=== PATIENT | male | born 1965 | race Caucasian/White ===

== ENCOUNTER 2016-12-25 11:51 | Inpatient (IN) | payer OTHER ==
[~2016-12-25] VITALS: Ht 172.7 cm; Wt 91.2 kg
--- NOTE | 2016-12-25 12:17 | EMERGENCY ROOM VISIT NOTE ---
History Report prepared by Alejandra: Marcela Mullen Under the Supervision of: Dr. Jerry Wilhelm D.O. First contact with patient: 12:04 Chief Complaint: STROKE SYMPTOMS Stated Complaint: NUMBNESS TO RT SIDE OF FACE/ARM Nursing Triage Summary: Triage note: pt ambulatory to triage. pt reports he woke up at approx 0600 "and i nearly fell out of bed, i just don' t feel right i feel like i am drunk or something" pt reports and the right side of my face in numb which started at 0800. pt reports at 0300 "i went to the bathroom fine but i felt weird then too." pt reports in triage "i am scared and is tearful. pt denies any pain. History of Present Illness The patient is a 51 year old male who presents to the Emergency Room with complaints of worsening right sided facial numbness beginning last night. The patient states that last night he had a [address] to [place] [facility]. 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 Once we got home he notes facial numbness began as well as tingling to right arm. Over night these symptoms worsened. He notes that he feels he does not have complete control of his right arm and is having trouble holding items. Patient states he "feels drunk", but denies recent alcohol use. He is experiencing mild nausea. The patient denies chest pain, shortness of breath, headache, vomiting or abdominal pain. He notes his speech is at baseline. Source of History: patient Onset: last night Position: other (face) Quality: numbness Timing: worsening Associated Symptoms: + nausea, No SOB, No abdominal pain, No chest pain Note: Patient is experiencing right arm tingling. Review of Systems See HPI for pertinent positives & negatives. A total of 10 systems reviewed and were otherwise negative. Past Medical & Surgical Medical Problems: (1) TIA (transient ischemic attack) Family History Patient reports no known family medical history. Social History Smoking Status: Current Every Day Smoker Alcohol Use: occasionally Drug Use: marijuana Occupation Status: employed Current/Historical Medications No Active Prescriptions or Reported Meds Allergies Coded Allergies: No Known Allergies (Unverified , 12/25/16) Physical Exam Vital Signs Date Time Temp Pulse Resp B/P Pulse Ox O2 Delivery O2 Flow Rate FiO2 12/25/16 14:30 66 20 143/102 97 Room Air 12/25/16 13:30 66 18 163/85 98 Room Air 12/25/16 12:30 70 20 151/80 97 Room Air 12/25/16 12:15 71 20 170/90 98 Room Air 12/25/16 12:09 77 12/25/16 12:08 96 Room Air 12/25/16 11:56 36.8 85 18 211/125 96 Room Air Physical Exam GENERAL: Patient is awake, alert, and in no acute distress. Patient is resting comfortably and showing no signs of anxiety EYES: The conjunctivae are clear. The pupils are round and reactive. EARS, NOSE, MOUTH AND THROAT: The nose is without any evidence of any deformity. Mucous membranes are moist tongue is midline NECK: The neck is nontender and supple. RESPIRATORY: Normal respiratory effort is noted there is no evidence of wheezing rhonchi or rales CARDIOVASCULAR: Regular rate and rhythm noted there no murmurs rubs or gallops normal S1 normal S2 GASTROINTESTINAL: The abdomen is soft. Bowel sounds are present in all quadrants. Abdomen is nontender MUSCULOSKELETAL/EXTREMITIES: There is no evidence of gross deformity full range of motion is noted in the hips and shoulders SKIN: There is no obvious evidence of any rash. There are no petechiae, pallor or cyanosis noted. NEUROLOGIC: Patient is awake alert and oriented x3 strength is symmetric patellar reflexes are 2+ bilaterally, no drift appreciated. Medical Decision & Procedures ER Provider Diagnostic Interpretation: Radiology results as stated below per my review and radiologist interpretation: CHEST ONE VIEW PORTABLE CLINICAL HISTORY: Stroke dyspnea COMPARISON STUDY: No previous studies for comparison. FINDINGS: The bones soft tissues and hemidiaphragms are normal. The cardiomediastinal silhouette is normal. The lungs are clear. The pulmonary vasculature is normal. IMPRESSION: Negative chest. Electronically signed by: Shai Garcia M.D. 12/25/2016 12:38 PM Dictated Date/Time: 12/25/2016 12:[address]AST CT DOSE: 638.56 mGycm HISTORY: Stroke symptoms. TECHNIQUE: Multiaxial CT images of the head were performed without the use of intravenous contrast. Automated exposure control was utilized for this study. Comparison: None. Findings: The paranasal sinuses and mastoid air cells are clear. The calvarium and skull base are intact. The ventricles and sulci are within normal limits. There is no mass, hematoma, midline shift, or acute infarct. Impression: No acute intracranial abnormality. Electronically signed by: Ramana Mendez M.D. 12/25/2016 12:31 PM Dictated Date/Time: 12/25/2016 12:25 PM Laboratory Results 12/25/16 12:06 Red Blood Count 5.04, Mean Corpuscular Volume 89.5, Mean Corpuscular Hemoglobin 31.9, Mean Corpuscular Hemoglobin Concent 35.7, Mean Platelet Volume 11.5, Neutrophils (%) (Auto) 54.1, Lymphocytes (%) (Auto) 35.5, Monocytes (%) (Auto) 7.3, Eosinophils (%) (Auto) 2.7, Basophils (%) (Auto) 0.2, Neutrophils # (Auto) 4.99, Lymphocytes # (Auto) 3.27, Monocytes # (Auto) 0.67, Eosinophils # (Auto) 0.25, Basophils # (Auto) 0.02 12/25/16 12:06 Test 12/25/16 12:06 12/25/16 12:09 12/25/16 13:00 White Blood Count 9.22 K/uL (4.8-10.8) Red Blood Count 5.04 M/uL (4.7-6.1) Hemoglobin 16.1 g/dL (14.0-18.0) Hematocrit 45.1 % (42-52) Mean Corpuscular Volume 89.5 fL (80-100) Mean Corpuscular Hemoglobin 31.9 pg (25-34) Mean Corpuscular Hemoglobin Concent 35.7 g/dl (32-36) Platelet Count 313 K/uL (130-400) Mean Platelet Volume 11.5 fL (7.4-10.4) Neutrophils (%) (Auto) 54.1 % Lymphocytes (%) (Auto) 35.5 % Monocytes (%) (Auto) 7.3 % Eosinophils (%) (Auto) 2.7 % Basophils (%) (Auto) 0.2 % Neutrophils # (Auto) 4.99 K/uL (1.4-6.5) Lymphocytes # (Auto) 3.27 K/uL (1.2-3.4) Monocytes # (Auto) 0.67 K/uL (0.11-0.59) Eosinophils # (Auto) 0.25 K/uL (0-0.5) Basophils # (Auto) 0.02 K/uL (0-0.2) RDW Standard Deviation 45.5 fL (36.4-46.3) RDW Coefficient of Variation 14.0 % (11.5-14.5) Immature Granulocyte % (Auto) 0.2 % Immature Granulocyte # (Auto) 0.02 K/uL (0.00-0.02) Prothrombin Time 11.0 SECONDS (9.0-12.0) Prothromb Time International Ratio 1.0 (0.9-1.1) Activated Partial Thromboplast Time 32.2 SECONDS (21.0-31.0) Partial Thromboplastin Ratio 1.2 Anion Gap 9.0 mmol/L (3-11) Est Creatinine Clear Calc Drug Dose 85.1 ml/min Estimated GFR () 88.4 Estimated GFR (Non- 76.2 BUN/Creatinine Ratio 10.7 (10-20) Calcium Level 9.2 mg/dl (8.5-10.1) Total Creatine Kinase 56 U/L (39-308) Creatine Kinase MB 0.9 ng/ml (0.5-3.6) Creatine Kinase MB Ratio 1.6 (0-3.0) Troponin I < 0.015 ng/ml (0-0.045) Bedside Glucose 135 mg/dl (70-99) Urine Opiates Screen NEG (NEG) Urine Methadone, Qualitative NEG (NEG) Urine Barbiturates NEG (NEG) Urine Phencyclidine (PCP) Level NEG (NEG) Ur Amphetamine/Methamphetamine NEG (NEG) MDMA (Ecstasy) Screen NEG (NEG) Urine Benzodiazepines Screen NEG (NEG) Urine Cocaine Metabolite NEG (NEG) Urine Marijuana (THC) POS (NEG) Laboratory results per my review. Medications Administered Medications (Trade) Dose Ordered Sig/Preston Route Start Time Stop Time Status Last Admin Dose Admin Sodium Chloride (Nss 1000ml) 1,000 ml @ 50 mls/hr Q20H IV 12/25/16 12:09 01/24/17 12:08 12/25/16 17:49 50 MLS/HR Acetaminophen (Tylenol Tab) 650 mg Q4H PRN PO 12/25/16 14:30 01/24/17 14:29 12/25/16 17:04 650 MG ECG Indication: other (facial numbness) Rate (beats per minute): 82 Rhythm: normal sinus Findings: no acute ischemic change, no ectopy Comparison ECG Date: no prior available ED Course 1205: The patient was evaluated in room B1. A complete history and physical examination were performed. 1209: Sodium Chloride 1,000 ml @ 50 mls/hr IV. 1212: Patient will not receive TPA due to long duration of symptoms. 1354: I discussed the results with the patient. 1357: I discussed the patient's case with Dr. Debbie COTTON. The patient will be evaluated for further management. 1400: Upon reevaluation, the patient is hemodynamically stable. I discussed results and treatment plan with the patient. He verbalizes agreement and understanding. I spoke with Dr. Lewis of the [facility]. The patient will be evaluated for further management and care. Medical Decision Differential diagnosis: Etiologies such as metabolic, infection, hypo/hyperglycemia, electrolyte abnormalities, cardiac sources, intracerebral event, toxicologic, neurologic, as well as others were entertained. Nursing notes reviewed. The patient is a 51-year-old male who has a history of untreated hypertension who presented to the emergency department for an evaluation of right sided neurologic symptoms. The patient did not have any acute abdomen abnormalities noted on CAT scan. I do feel that his condition could be consistent with a TIA. I discussed the patient's laboratory and radiographic studies with him. I also discussed his case with the on-call [facility] hospitalist group. They have agreed to evaluate the patient in emergency apartment for further management and disposition. Consults Time Called: [phone] Consulting Physician: Dr. Debbie COTTON Returned Call: [phone] I discussed the patient's case with Dr. Debbie COTTON. The patient will be evaluated for further management. Impression Primary Impression: TIA (transient ischemic attack) Additional Impression: Right sided weakness Scribe Attestation The scribe's documentation has been prepared under my direction and personally reviewed by me in its entirety. I confirm that the note above accurately reflects all work, treatment, procedures, and medical decision making performed by me. Departure Information Dispostion Being Evaluated By Hospitalist Prescriptions No Active Prescriptions or Reported Meds Referrals No Doctor, Assigned (PCP) Problem Qualifiers
[2016-12-25] MEDS: SODIUM CHLORIDE 0.9% 1000ML 1,000 ML IV SCH ×2 (12:27→17:49)
[2016-12-25 12:31] LABS: BASO % 0.2 %; BASO ABS # 0.02 K/uL (0-0.2); COMPLETE YES; EOS % 2.7 %; HEMATOCRIT 45.1 % (42-52); IG% 0.2 %; LYMPH % 35.5 %; LYMPH ABS # 3.27 K/uL (1.2-3.4); MEAN CELL VOLUME 89.5 fL (80-100); MEAN CORPUSCULAR HEMOGLOBIN 31.9 pg (25-34); MEAN CORPUSCULAR HGB CONC 35.7 g/dl (32-36); MEAN PLATELET VOLUME 11.5 fL (7.4-10.4); MONO % 7.3 %; NEUT % 54.1 %; PLATELET COUNT 313 K/uL (130-400); RED BLOOD COUNT 5.04 M/uL (4.7-6.1); WHITE BLOOD COUNT 9.22 K/uL (4.8-10.8)
--- NOTE | 2016-12-25 12:32 | DIAGNOSTIC IMAGING REPORT ---
HEAD CT NONCONTRAST CT DOSE: 638.56 mGycm HISTORY: Stroke symptoms. TECHNIQUE: Multiaxial CT images of the head were performed without the use of intravenous contrast. Automated exposure control was utilized for this study. Comparison: None. Findings: The paranasal sinuses and mastoid air cells are clear. The calvarium and skull base are intact. The ventricles and sulci are within normal limits. There is no mass, hematoma, midline shift, or acute infarct. Impression: No acute intracranial abnormality. Electronically signed by: Ramana Mendez M.D. 12/25/2016 12:31 PM Dictated Date/Time: 12/25/2016 12:25 PM
--- NOTE | 2016-12-25 12:39 | DIAGNOSTIC IMAGING REPORT ---
CHEST ONE VIEW PORTABLE CLINICAL HISTORY: Stroke dyspnea COMPARISON STUDY: No previous studies for comparison. FINDINGS: The bones soft tissues and hemidiaphragms are normal. The cardiomediastinal silhouette is normal. The lungs are clear. The pulmonary vasculature is normal. IMPRESSION: Negative chest. Electronically signed by: Shai Garcia M.D. 12/25/2016 12:38 PM Dictated Date/Time: 12/25/2016 12:38 PM
[2016-12-25 12:41] LABS: PARTIAL THROMBOPLASTIN RATIO 1.2
[2016-12-25 12:49] LABS: BLOOD UREA NITROGEN 12 mg/dl (7-18); BUN/CREATININE RATIO 10.7 (10-20); CALCIUM 9.2 mg/dl (8.5-10.1); CARBON DIOXIDE 23 mmol/L (21-32); CHLORIDE 101 mmol/L (98-107); GLUCOSE 136 mg/dl (70-99); POTASSIUM 3.8 mmol/L (3.5-5.1); SODIUM 133 mmol/L (136-145)
[2016-12-25 12:53] LABS: CKMB/CK RATIO 1.6 (0-3.0)
[2016-12-25 13:28] LABS: BENZODIAZEPINE, URINE NEG (NEG); COCAINE,URINE NEG (NEG); PHENCYCLIDINE, URINE NEG (NEG)
[2016-12-25] MEDS ORDERED: PHARMACIST DISCHARGE MED REC CONSULT PRN (14:30)
[2016-12-25] MEDS ORDERED: ONDANSETRON INJ 2 MG/ML 2 ML VIAL IV PRN (14:30)
[2016-12-25] MEDS ORDERED: ACETAMINOPHEN 325 MG TAB PO PRN (14:30)
[2016-12-25] MEDS ORDERED: ALUMINUM/MAGNESIUM/SIMETH (MAALOX MAX) 30 ML UDC PO PRN (14:30)
--- NOTE | 2016-12-25 14:58 | History and Physical ---
History & Physical Date & Time of Service: Dec 25, 2016 at 14:34 Chief Complaint: Numbness To Rt Side Of Face/Arm Primary Care Physician: No Doctor, Assigned History of Present Illness Source: patient This patient is a pleasant 51-year-old male that presents the emergency department complaining of right facial numbness, right arm weakness and dizziness that started last night. The patient initially noticed that the right side of his face felt numb last night around 8:00. When he woke up this morning at 6 AM, he reports feeling dizzy-almost intoxicated. He tried to grab his cell phone on the night stand and felt like his right arm was not working right. The symptoms have persisted since. He got out of bed, he had difficulty walking and continued to feel intoxicated. The patient denies any recent alcohol use. He denies any confusion or slurred speech. No difficulty swallowing. He is not from the area. He is here for work. The patient denies ever having similar symptoms. He does have a history of a cardiac stent, which was placed at the age of 33. He does not take any medications on a regular basis. He admits that he has not been to the doctor for quite some time. The patient also notes that he intermittently has visual changes when he overexerts himself with physical activity. He describes it as a "lightning bolts" in his right visual field. The symptoms seem to dissipate when he rests. He denies any chest pain or dyspnea on exertion. He denies any heart palpitations. He is a smoker-one pack per day. Past Medical/Surgical History cardiac stent x 1 at the age of 33 Family History father-carotid disease s/p endarterectomy still living in his 80s mother-still living. Reportedly healthy sister in her 50s of asthma Social History Smoking Status: Current Every Day Smoker (1 ppd ) Drug Use: marijuana Marital Status: in relationship Housing status: lives with significant other Occupational Status: employed Allergies Coded Allergies: No Known Allergies (Unverified , 12/25/16) Home Medications No Active Prescriptions or Reported Meds Review of Systems 10 system review performed and negative unless noted in HPI or below Physical Exam Vital Signs Date Time Temp Pulse Resp B/P Pulse Ox O2 Delivery O2 Flow Rate FiO2 12/25/16 12:30 70 20 151/80 97 Room Air 12/25/16 12:15 71 20 170/90 98 Room Air 12/25/16 12:09 77 12/25/16 12:08 96 Room Air 12/25/16 11:56 36.8 85 18 211/125 96 Room Air General Appearance: no apparent distress Head: normocephalic Eyes: EOMI ENT: + pertinent finding (oral mucosa dry) Neck: no JVD Respiratory/Chest: + pertinent finding (coarse breath sounds bilaterally. No rhonchi or wheezing. No crackles. No tachypnea.) Cardiovascular: regular rate, rhythm Abdomen/GI: normal bowel sounds, non tender, soft Extremities/Musculoskelatal: no calf tenderness, no pedal edema Neurologic/Psych: oriented x 3, + pertinent finding (questionable slight weakness noted with biceps strength on the right. Sensation decreased on the right side of the face.) Skin: warm/dry Diagnostics Laboratory Results Results Past 24 Hours Test 12/25/16 12:06 12/25/16 12:09 12/25/16 13:00 Range/Units White Blood Count 9.22 4.8-10.8 K/uL Red Blood Count 5.04 4.7-6.1 M/uL Hemoglobin 16.1 14.0-18.0 g/dL Hematocrit 45.1 42-52 % Mean Corpuscular Volume 89.5 80-100 fL Mean Corpuscular Hemoglobin 31.9 25-34 pg Mean Corpuscular Hemoglobin Concent 35.7 32-36 g/dl Platelet Count 313 130-400 K/uL Mean Platelet Volume 11.5 7.4-10.4 fL Neutrophils (%) (Auto) 54.1 % Lymphocytes (%) (Auto) 35.5 % Monocytes (%) (Auto) 7.3 % Eosinophils (%) (Auto) 2.7 % Basophils (%) (Auto) 0.2 % Neutrophils # (Auto) 4.99 1.4-6.5 K/uL Lymphocytes # (Auto) 3.27 1.2-3.4 K/uL Monocytes # (Auto) 0.67 0.11-0.59 K/uL Eosinophils # (Auto) 0.25 0-0.5 K/uL Basophils # (Auto) 0.02 0-0.2 K/uL RDW Standard Deviation 45.5 36.4-46.3 fL RDW Coefficient of Variation 14.0 11.5-14.5 % Immature Granulocyte % (Auto) 0.2 % Immature Granulocyte # (Auto) 0.02 0.00-0.02 K/uL Prothrombin Time 11.0 9.0-12.0 SECONDS Prothromb Time International Ratio 1.0 0.9-1.1 Activated Partial Thromboplast Time 32.2 21.0-31.0 SECONDS Partial Thromboplastin Ratio 1.2 Sodium Level 133 136-145 mmol/L Potassium Level 3.8 3.5-5.1 mmol/L Chloride Level 101 98-107 mmol/L Carbon Dioxide Level 23 21-32 mmol/L Anion Gap 9.0 3-11 mmol/L Blood Urea Nitrogen 12 7-18 mg/dl Creatinine 1.10 0.60-1.40 mg/dl Est Creatinine Clear Calc Drug Dose 85.1 ml/min Estimated GFR () 88.4 Estimated GFR (Non- 76.2 BUN/Creatinine Ratio 10.7 10-20 Random Glucose 136 70-99 mg/dl Calcium Level 9.2 8.5-10.1 mg/dl Total Creatine Kinase 56 39-308 U/L Creatine Kinase MB 0.9 0.5-3.6 ng/ml Creatine Kinase MB Ratio 1.6 0-3.0 Troponin I < 0.015 0-0.045 ng/ml Bedside Glucose 135 70-99 mg/dl Urine Opiates Screen NEG NEG Urine Methadone, Qualitative NEG NEG Urine Barbiturates NEG NEG Urine Phencyclidine (PCP) Level NEG NEG Ur Amphetamine/Methamphetamine NEG NEG MDMA (Ecstasy) Screen NEG NEG Urine Benzodiazepines Screen NEG NEG Urine Cocaine Metabolite NEG NEG Urine Marijuana (THC) POS NEG Diagnostic Radiology Patient Name: VERO MUJICA Unit Number: [id number] Dictated: 12/25/161224 Transcribed: 12/25/161224 [facility] Printed Date/Time: [~ rep prt dt]/[~ rep prt tm] [~ rep ct labl] - [~ rep ct ivnm] [facility] Radiology Department [place], [place] [id number] Dictated: 12/25/161224 Transcribed: 12/25/161224 [place] Printed Date/Time: [~ rep prt dt]/[~ rep prt tm] [~ rep ct labl] - [~ rep ct ivnm] Patient: VERO MUJICA Address1: [address] [facility] [address] [facility] Rec: [id number] Address2: Acct ID: [id number] [facility] Zip: [place] [address] Date: 1965 Sex: M Room/Bed: Ref Phy: No Doctor, Assigned SC: SEYMOUR Att Phy: Report #: [id number] Elo Phy: No Doctor, Assigned Test: HWO Admit Phy: Analyst Programmer: SANTOS Interpreting Phy: Ramana Mendez MD Diagnosis: NUMBNESS TO RT SIDE OF FACE/ARM Ordering Phy: Jerry Wilhelm D.O. Service Date: 12/25/16 Admit Date: 12/25/16 MNE: [id number] CONF: DICTATED BY: Ramana Mendez M.D.]] CC: Jerry Wilhelm, DO No Doctor, Assigned Endcc: [~ rep ct add3]] HEAD CT NONCONTRAST CT DOSE: 638.56 mGycm HISTORY: Stroke symptoms. TECHNIQUE: Multiaxial CT images of the head were performed without the use of intravenous contrast. Automated exposure control was utilized for this study. Comparison: None. Findings: The paranasal sinuses and mastoid air cells are clear. The calvarium and skull base are intact. The ventricles and sulci are within normal limits. There is no mass, hematoma, midline shift, or acute infarct. Impression: No acute intracranial abnormality. Electronically signed by: Ramana Mendez M.D. 12/25/2016 12:31 PM Dictated Date/Time: 12/25/2016 12:25 PM The status of this report is Signed. Draft = Not yet reviewed or approved by Radiologist. Signed = Reviewed and approved by Radiologist. <AttendingPhy></AttendingPhy> <FamilyPhy>No Doctor, Assigned</FamilyPhy> < PrimaryPhy>No Doctor, Assigned</PrimaryPhy> <UnitNumber>[id number]</UnitNumber> <VisitNumber>[id number]</VisitNumber> <PatientName>VERO MUJICA</ PatientName> <DateOfBirth>1965</DateOfBirth> <Location>C.EDB</Location> < ServiceDate>12/25/16</ServiceDate> <MNE>ESINDI</MNE> <OrderingPhy>Jerry Wilhelm D.O.</OrderingPhy> <OrderingPhyMNE>f rep ord dr villasenor</OrderingPhyMNE> <DictatingPhyMNE>f rep dict dr villasenor</DictatingPhyMNE> <CCListMNE>f rep ct mne</ CCListMNE> <AdmittingPhyMNE>f pt admit dr villasenor</AdmittingPhyMNE> <AttendingPhyMNE >f pt attend dr villasenor</AttendingPhyMNE> <ConsultingPhyMNE>f pt consult dr villasenor</ConsultingPhyMNE> <FamilyPhyMNE>f pt fam dr villasenor</FamilyPhyMNE> <OtherPhyMNE>f pt other dr villasenor</OtherPhyMNE> < PrimaryPhyMNE>f pt prim care dr villasenor</PrimaryPhyMNE> <ReferringPhyMNE>f pt referring dr villasenor</ReferringPhyMNE> Patient: VERO MUJICA Address1: [facility] [facility] Med Rec: [id number] Address2: Acct ID: [id number] [facility] Zip: [place] [address] Date: 1965 Sex: M Room/Bed: Ref Phy: No Doctor, Assigned SC: SEYMOUR Att Phy: Report #: [id number] Elo Phy: No Doctor, Assigned Test: CXR1P Admit Phy: Analyst Programmer: CHRISTIANA Interpreting Phy: Shai Garcia M.D. Diagnosis: NUMBNESS TO RT SIDE OF FACE/ ARM Ordering Phy: Jerry Wilhelm D.O. Service Date: 12/25/16 Admit Date: 12/25/16 MNE: [id number] CONF: DICTATED BY: Shai Garcia M.D.]] CC: Jerry Wilhelm, No Doctor, Assigned Endcc: [~ rep ct add3]] CHEST ONE VIEW PORTABLE CLINICAL HISTORY: Stroke dyspnea COMPARISON STUDY: No previous studies for comparison. FINDINGS: The bones soft tissues and hemidiaphragms are normal. The cardiomediastinal silhouette is normal. The lungs are clear. The pulmonary vasculature is normal. IMPRESSION: Negative chest. Electronically signed by: Shai Garcia M.D. 12/25/2016 12:38 PM Dictated Date/Time: 12/25/2016 12:38 PM The status of this report is Signed. Draft = Not yet reviewed or approved by Radiologist. Signed = Reviewed and approved by Radiologist. <AttendingPhy></AttendingPhy> <FamilyPhy>No Doctor, Assigned</FamilyPhy> < PrimaryPhy>No Doctor, Assigned</PrimaryPhy> <UnitNumber>[id number]</UnitNumber> <VisitNumber>[id number]</VisitNumber> <PatientName>VERO MUJICA</ PatientName> <DateOfBirth>1965</DateOfBirth> <Location>C.EDB</Location> < ServiceDate>12/25/16</ServiceDate> <MNE>ESINDI</MNE> <OrderingPhy>Jerry Wilhelm D.O.</OrderingPhy> <OrderingPhyMNE>f rep ord dr villasenor</OrderingPhyMNE> <DictatingPhyMNE>f rep dict dr villasenor</DictatingPhyMNE> <CCListMNE>f rep ct [place]</ CCListMNE> <AdmittingPhyMNE>f pt admit dr villasenor</AdmittingPhyMNE> <AttendingPhyMNE >f pt attend dr villasenor</AttendingPhyMNE> <ConsultingPhyMNE>f pt consult dr villasenor</ConsultingPhyMNE> <FamilyPhyMNE>f pt fam dr villasenor</FamilyPhyMNE> <OtherPhyMNE>f pt other dr villasenor</OtherPhyMNE> < PrimaryPhyMNE>f pt prim care dr villasenor</PrimaryPhyMNE> <ReferringPhyMNE>f pt referring dr villasenor</ReferringPhyMNE> EKG Normal sinus rhythm 82 bpm No ischemic changes noted No previous available for comparison Impression Assessment and Plan 51 y/o male right facial numbness and questionable right arm weakness with feelings of uncoordination-? TIA vs CVA. Multiple risk factors -Admit to telemetry -Neuro checks every 2 hours -MRI brain combo -carotid US -Check echo -Trend cardiac enzymes -Allow for permissive hypertension for now -Lipid profile -HgbA1C -Begin atorvastatin 40 mg daily -Continue ASA 81 mg -Blood pressure recommendations for the first month post hospital discharge 150/ 90-130/80, and after that blood pressure recommendations 130/80-110/70 Total cholesterol goal 100- 200 and LDL goal less than 100 Hemoglobin A1c goal less than 7 Encourage cardiovascular exercise at least 3 times a week for 30 minutes. CAD s/p stent-unsure why he is not taking any meds-poor compliance/f/u? -ASA and statin as noted above -? start beta rachel DVT prophylaxis -Lovenox 40 mg subQ daily -TEDS, SCDs CODE STATUS -LEVEL I FULL CODE i personally examined pt and verified all points w A [facility] PAC feeling better by the time i see him. R face and arm sensation returning and strength good. "drunk" feeling fading. anxious about what's going on. relates that he used to smoke 2ppd now down to alternating between cigarettes and ecigs. vitals noted, pleasant nad. L pupil > R. no facial asymmetry, strength appears normal. breathing unlabored. exam otherwise as above MRI noted TIA - appearing most likely due to intracranial small vessel disease - high risk for atherosclerotic disease: male, age, HTN, he believes hyperlipid, pre- existing (+) vascular disease, heavy tobacco use hx w ongoing use. -check lipids, check A1c, follow BP (but need to treat some given range of elevations currently - with HR in 60's will add lisinopril instead of beta rachel) -check carotids to rule out atheroembolic source -follow for afib, check echo to eval for potential for cardioembolic ---start asa 81mg daily, lipitor 40mg daily (may need to raise to 80 depending on lipids - he relates believing his cholesterol will be "around 400") unsteadiness -?related to above w numbness making perception of proprioception off, vs gee lesion noted affecting equilibrium. -treat as above -PT/OT otherwise as above Level of Care Telemetry Resuscitation Status FULL RESUSCITATION VTE Prophylaxis VTE Risk Assessment Done? Y/N: Yes Risk Level: Low Given or contraindicated: Enoxaparin (Lovenox)SQ, T.E.D. Stockings, SCD's
[2016-12-25 15:54] VITALS: O2SAT 96; Ht 172.7 cm; Wt 91.2 kg
[2016-12-25] MEDS ORDERED: ENOXAPARIN 40 MG/0.4 ML SYR SC SCH (16:00)
[2016-12-25] MEDS ORDERED: GADAVIST IV PRN (16:30)
--- NOTE | 2016-12-25 16:39 | DIAGNOSTIC IMAGING REPORT ---
MRI OF THE BRAIN WITHOUT AND WITH IV CONTRAST CLINICAL HISTORY: Stroke RIGHT-SIDED BODY AND FACIAL NUMBNESS. COMPARISON STUDY: Head CT dated 12/25/2016 TECHNIQUE: MRI of the brain was performed from the vertex to the skull base utilizing various T1 and T2 weighted sequences. Following the IV administration of 9 mL of Gadavist contrast, additional enhanced images were obtained. FINDINGS: Sagittal T1, axial diffusion, proton density and T2 weighted axial, coronal FLAIR, and pre and post axial T1-weighted images were acquired. These were supplemented with post gadolinium coronal T1 weighted images. There is mild cerebellar tonsillar ectopia (4 mm) No intra or extra-axial mass lesions are visualized. Axial diffusion-weighted images reveal no evidence of acute or subacute infarction. There is no evidence of ventricular dilatation. Proton density T2-weighted and FLAIR images reveal a subtle 4 mm focus of increased signal within the left central gee, likely on a small vessel basis. No additional signal abnormalities are delineated. There are no abnormal flow voids. There is no evidence of pathologic enhancement. IMPRESSION: 1. Mild cerebellar tonsillar ectopia 2. No evidence of acute or subacute infarction 3. No evidence of intracranial mass 4. Very subtle 4 mm focus of increased signal within the left central gee, likely on a small vessel basis Electronically signed by: Markus Castillo M.D. 12/25/2016 4:37 PM Dictated Date/Time: 12/25/2016 4:32 PM
[2016-12-25 17:53] VITALS: BP 184/96; PULSE 66; TEMP 36.6; O2SAT 96
[2016-12-25 18:14] VITALS: BP 171/95
[2016-12-25 19:32] VITALS: BP 153/84; PULSE 60; TEMP 36.5; O2SAT 98
[2016-12-25] MEDS ORDERED: LISINOPRIL 10 MG TAB PO ONE (20:30)
[2016-12-25] MEDS ORDERED: NICOTINE 14 MG/24 HR TDSY TD ONE (20:30)
--- NOTE | 2016-12-25 22:41 | DIAGNOSTIC IMAGING REPORT ---
CAROTID ARTERY ULTRASOUND CLINICAL HISTORY: Stroke. Right facial and arm numbness. COMPARISON STUDY: None. TECHNIQUE: Real-time, grayscale, and color Doppler sonography of the carotid and vertebral arteries was performed. Images were viewed in the transverse and longitudinal planes. FINDINGS: There is mild atherosclerotic plaque. Velocity measurements are listed below. COMMON CAROTID PEAK SYSTOLIC VELOCITY (CM/S): RIGHT 86 LEFT 83 ICA PEAK SYSTOLIC VELOCITY (CM/S): RIGHT 48 LEFT 94 The systolic ratios between the internal to common carotid arteries were normal. Mildly elevated velocities were noted within the bilateral external carotid arteries, slightly greater on the right. The peak systolic velocity within the right external carotid artery was 150 cm/s. Antegrade flow is seen in the vertebral arteries. The external carotid arteries are patent. Blood pressure in the right arm measured 170/82. Blood pressure in the left arm measured 147/80. IMPRESSION: 1. No evidence of a hemodynamically significant stenosis within the bilateral internal carotid arteries. 2. Mildly elevated velocities within the bilateral external carotid arteries which could reflect mild stenoses. 3. Blood pressure discrepancy between the upper extremities, a nonspecific finding. Electronically signed by: Andre Morfin M.D. 12/25/2016 10:39 PM Dictated Date/Time: 12/25/2016 9:41 PM
[2016-12-25 23:48] VITALS: BP 128/77; PULSE 62; TEMP 36.6; O2SAT 98
[2016-12-26 04:23] VITALS: BP 159/77; PULSE 55; TEMP 36.5; O2SAT 97
[2016-12-26 07:01] LABS: ESTIMATED AVERAGE GLUCOSE 88 mg/dl; HA1C FLAG Normal (Normal)
[2016-12-26 07:44] LABS: BASO % 0.5 %; BASO ABS # 0.04 K/uL (0-0.2); COMPLETE YES; EOS % 4.4 %; HEMATOCRIT 44.9 % (42-52); IG% 0.3 %; LYMPH % 34.9 %; LYMPH ABS # 2.64 K/uL (1.2-3.4); MEAN CELL VOLUME 90.3 fL (80-100); MEAN CORPUSCULAR HGB CONC 35.4 g/dl (32-36); MEAN PLATELET VOLUME 11.6 fL (7.4-10.4); MONO % 8.1 %; NEUT % 51.8 %; PLATELET COUNT 276 K/uL (130-400); RED BLOOD COUNT 4.97 M/uL (4.7-6.1); WHITE BLOOD COUNT 7.57 K/uL (4.8-10.8)
[2016-12-26 08:17] LABS: BUN/CREATININE RATIO 13.7 (10-20); CALCIUM 8.4 mg/dl (8.5-10.1); CREATININE 0.97 mg/dl (0.60-1.40)
[2016-12-26 08:18] VITALS: BP 158/87; PULSE 63; TEMP 36.7; O2SAT 97
[2016-12-26 08:22] LABS: CHOLESTEROL/HDL RATIO 10.7
[2016-12-26] MEDS ORDERED: ATORVASTATIN 40 MG TAB PO SCH (09:00)
[2016-12-26] MEDS ORDERED: LISINOPRIL 10 MG TAB PO SCH (09:00)
[2016-12-26] MEDS ORDERED: ASPIRIN 81 MG ECTAB PO SCH (09:00)
[2016-12-26] MEDS ORDERED: NICOTINE 14 MG/24 HR TDSY TD SCH (09:00)
[2016-12-26] MEDS ORDERED: AMLODIPINE BESYLATE 5 MG TAB PO SCH (09:00)
[2016-12-26] MEDS ORDERED: NRV5 PO (12:04)
[2016-12-26] MEDS ORDERED: ASPEC81 PO (12:04)
[2016-12-26] MEDS ORDERED: LSN10 PO (12:04)
[2016-12-26] MEDS ORDERED: LPT40 PO (12:04)
--- NOTE | 2016-12-26 12:08 | Discharge Instructions ---
Discharge Instructions Admission Reason for Admission: TIA Discharge Discharge Diagnosis / Problem: Dizziness - resolved, TIA, HTN Discharge Goals Goal(s): Decrease discomfort Activity Recommendations Activity Limitations: resume your previous activity . Instructions / Follow-Up Instructions / Follow-Up PCP in 5-7 days. Current Hospital Diet Patient's current hospital diet: AHA Diet (Heart Healthy) Discharge Diet Recommended Diet: AHA Diet (Heart Healthy) Pending Studies Studies pending at discharge: yes List of pending studies: Lyme titre, Vitamin B 12 level, Folate level, RPR. Laboratory Results Last 24 Hours Test 12/25/16 12:09 12/25/16 13:00 12/26/16 06:30 12/26/16 11:55 Bedside Glucose 135 mg/dl Urine Opiates Screen NEG Urine Methadone, Qualitative NEG Urine Barbiturates NEG Urine Phencyclidine (PCP) Level NEG Ur Amphetamine/Methamphetamine NEG MDMA (Ecstasy) Screen NEG Urine Benzodiazepines Screen NEG Urine Cocaine Metabolite NEG Urine Marijuana (THC) POS White Blood Count 7.57 K/uL Red Blood Count 4.97 M/uL Hemoglobin 15.9 g/dL Hematocrit 44.9 % Mean Corpuscular Volume 90.3 fL Mean Corpuscular Hemoglobin 32.0 pg Mean Corpuscular Hemoglobin Concent 35.4 g/dl Platelet Count 276 K/uL Mean Platelet Volume 11.6 fL Neutrophils (%) (Auto) 51.8 % Lymphocytes (%) (Auto) 34.9 % Monocytes (%) (Auto) 8.1 % Eosinophils (%) (Auto) 4.4 % Basophils (%) (Auto) 0.5 % Neutrophils # (Auto) 3.93 K/uL Lymphocytes # (Auto) 2.64 K/uL Monocytes # (Auto) 0.61 K/uL Eosinophils # (Auto) 0.33 K/uL Basophils # (Auto) 0.04 K/uL RDW Standard Deviation 45.9 fL RDW Coefficient of Variation 14.0 % Immature Granulocyte % (Auto) 0.3 % Immature Granulocyte # (Auto) 0.02 K/uL Sodium Level 134 mmol/L Potassium Level 4.0 mmol/L Chloride Level 103 mmol/L Carbon Dioxide Level 23 mmol/L Anion Gap 8.0 mmol/L Blood Urea Nitrogen 13 mg/dl Creatinine 0.97 mg/dl Est Creatinine Clear Calc Drug Dose 96.6 ml/min Estimated GFR () 102.9 Estimated GFR (Non- 88.8 BUN/Creatinine Ratio 13.7 Random Glucose 86 mg/dl Calcium Level 8.4 mg/dl Triglycerides Level 141 mg/dl Cholesterol Level 310 mg/dl HDL Cholesterol 29 mg/dl LDL Cholesterol, Calculated 253 mg/dl VLDL Cholesterol, Calculated 28 mg/dl Cholesterol/HDL Ratio 10.7 Hemoglobin A1c Test 12/25/16 12:06 Range/Units Estimated Average Glucose 88 mg/dl Hemoglobin A1c 4.7 4.5-5.6 % Lipid Panel Test 12/26/16 06:30 Range/Units Triglycerides Level 141 0-150 mg/dl Cholesterol Level 310 H 0-200 mg/dl HDL Cholesterol 29 mg/dl Cholesterol/HDL Ratio 10.7 LDL Cholesterol, Calculated 253 mg/dl Medical Emergencies . Who to Call and When: Medical Emergencies: If at any time you feel your situation is an emergency, please call 911 immediately. . Non-Emergent Contact Non-Emergency issues call your: Primary Care Provider . . "Provider Documentation" section prepared by Amado Jacobs. VTE Core Measure Inpt VTE Proph given/why not?: Enoxaparin (Lovenox)POLI, T.E.Jasiel. Stockings, SCD's
[2016-12-26 12:09] VITALS: BP_SYST 147; BP_SYST 158; BP_DIAS 87; BP_DIAS 89; PULSE 62; PULSE 63; TEMP 36.5; TEMP 36.7; O2SAT 97; O2SAT 99
--- NOTE | 2016-12-26 13:20 | ECHOCARDIOGRAM REPORT ---
*NOTICE TO RECEIVING [employer] This information is strictly Confidential and protected under [place] law. [place] law prohibits you from making any further disclosure of this information unless further disclosure is expressly permitted by the written consent of the person to whom it pertains or is authorized by law. A general authorization for the release of medical or other information is not sufficient for this purpose. Hospital accepts no responsibility if the information is made available to any other person, INCLUDING THE PATIENT. Interpretation Summary * Name: VERO MUJICA Study Date: 12/26/2016 09:52 AM BP: 159/77 mmHg * Patient Location: .2T\S\E222\S\1 HR: 66 * : 1965 (M/d/yyyy) Gender: Male Height: 67 in * Age: 51 yrs Ethnicity: CA Weight: 200 lb * Ordering Physician: Jodie Rider * Referring Physician: Self, Referred * Performed By: Carlitos Medrano RDCS * * Reason For Study: Cerebrsl ischemia/Embolus * BSA: 2.0 m2 * -- Conclusions -- * The left ventricle is normal in size. * There is normal left ventricular wall thickness. * Left ventricular systolic function is normal. * Ejection Fraction = 65-70%. * The left ventricular wall motion is normal. * The right ventricle is normal in size and function. * The right ventricular systolic function is normal as assessed by tricuspid annular plane systolic excursion (TAPSE) (normal >1.5 cm). * Mild aortic root dilatation. (4.1 cm) Procedure Details * A complete two-dimensional transthoracic echocardiogram was performed (2D, M-mode, Doppler and color flow Doppler). * The study was technically adequate. * A saline contrast injection was performed to assess for cardiac shunting. * The injection was performed through an intravenous line in the left arm. * The attending nurse who injected the saline contrast was JENNA Salmon. * A total of 20 cc of agitated saline was given. Left Ventricle * The left ventricle is normal in size. * There is normal left ventricular wall thickness. * Left ventricular systolic function is normal. * Ejection Fraction = 65-70%. * The left ventricular wall motion is normal. Right Ventricle * The right ventricle is normal in size and function. * The right ventricular systolic function is normal as assessed by tricuspid annular plane systolic excursion (TAPSE) (normal >1.5 cm). Atria * The left atrial size is normal. * Right atrial size is normal. Mitral Valve * The mitral valve is grossly normal. * Significant mitral regurgitation is absent. Tricuspid Valve * The tricuspid valve is not well visualized, but is grossly normal. * No tricuspid regurgitation. Aortic Valve * The aortic valve is trileaflet. Pulmonic Valve * The pulmonic valve is not well seen, but is grossly normal. * Trace pulmonic valvular regurgitation. Great Vessels * Mild aortic root dilatation. Pericardium/Pleural * There is no pericardial effusion. Great Vessels * Normal inferior vena cava size and collapsability with sniff indicates a normal right atrial pressure of 3 mmHg Left Ventricular Diastolic Function * E wave= A wave Normal E to e' ratio MMode 2D Measurements and Calculations IVSd 1.0 cm IVSs 1.7 cm LVIDd 5.2 cm LVIDs 2.6 cm LVPWd 1.1 cm LVPWs 1.8 cm IVS/LVPW 0.93 FS 50.3 % EDV(Teich) 130.3 ml ESV(Teich) 24.5 ml EF(Teich) 81.2 % EDV(cubed) 141.7 ml ESV(cubed) 17.4 ml EF(cubed) 87.7 % % IVS thick 66.3 % % LVPW thick 57.2 % LV mass(C)d 215.5 grams LV mass(C)dI 106.6 grams/m\S\2 LV mass(C)s 172.6 grams LV mass(C)sI 85.4 grams/m\S\2 SV(Teich) 105.8 ml SI(Teich) 52.3 ml/m\S\2 SV(cubed) 124.3 ml SI(cubed) 61.5 ml/m\S\2 Ao root diam 4.1 cm Ao root area 13.0 cm\S\2 ACS 2.1 cm LA dimension 3.3 cm asc Aorta Diam 3.6 cm LA/Ao 0.82 LVOT diam 2.1 cm LVOT area 3.4 cm\S\2 LVAd ap4 26.3 cm\S\2 LVLd ap4 7.8 cm EDV(MOD-sp4) 73.6 ml LVAs ap4 15.2 cm\S\2 LVLs ap4 7.2 cm ESV(MOD-sp4) 27.6 ml EF(MOD-sp4) 62.5 % LVAd ap2 22.8 cm\S\2 LVLd ap2 7.8 cm EDV(MOD-sp2) 57.9 ml LVAs ap2 12.0 cm\S\2 LVLs ap2 6.2 cm ESV(MOD-sp2) 20.1 ml EF(MOD-sp2) 65.3 % SV(MOD-sp4) 46.0 ml SI(MOD-sp4) 22.7 ml/m\S\2 SV(MOD-sp2) 37.8 ml SI(MOD-sp2) 18.7 ml/m\S\2 Doppler Measurements and Calculations MV E max jann 66.5 cm/sec MV A max jann 67.4 cm/sec MV E/A 0.99 MV dec time 0.23 sec Ao V2 max 150.3 cm/sec Ao max PG 9.0 mmHg Ao max PG (full) 4.2 mmHg BYRON(V,A) 2.4 cm\S\2 BYRON(V,D) 2.4 cm\S\2 LV V1 max PG 4.8 mmHg LV V1 max 109.6 cm/sec PA V2 max 79.1 cm/sec PA max PG 2.5 mmHg
[2016-12-26 15:57] LABS: LYME DISEASE AB IGG NEG (NEG); LYME DISEASE AB IGM NEG (NEG)
--- NOTE | 2016-12-26 19:18 | Discharge Summary ---
Discharge Summary Date of Service Dec 26, 2016. Discharge Summary Admission Date: Dec 25, 2016 at 14:33 Discharge Date: Dec 26, 2016 Discharge Disposition: Home Principal Diagnosis: TIA Problems/Secondary Diagnoses: Hypertension, Hyperlipidemia, CAD Procedures: NONE. Consultations: NONE. Medication Reconciliation New Medications: Amlodipine Besylate (Amlodipine Besylate) 5 Mg Tab 5 MG PO QAM for 30 Days, #30 TAB 0 Refills Aspirin (Aspirin EC Low Dose) 81 Mg Ectab 81 MG PO QAM for 30 Days, #30 0 Refills Atorvastatin (Atorvastatin Calcium) 40 Mg Tab 40 MG PO QAM for 30 Days, #30 TAB 0 Refills Lisinopril (Zestril) 10 Mg Tab 10 MG PO QAM for 30 Days, #30 TAB 0 Refills Discharge Exam A 10 system review was performed and all were negative except he had noted the right facial paraesthesia was less, but not resolved when I evaluated him. No headache, No change in vision. No dizziness, vertigo, disequilibrium, or "feeling drunk" sensation. GEN: Awake, alert, and oriented x 3. Not in acute distress HEENT: Tm's intact, no inflammation, EOMI, PERRLA, MMM Neck: Soft, supple Lungs: CTA b/l, no r/r/w Heart: REG, nrl S1S2 without murmurs, rubs or gallops Abdomen: Soft, NT, ND, + BS EXT: No C/C/E NEURO: CN's II-XII grossly intact, non-focal Skin: warm, dry, no rashes PSYCH: pleasant, cooperative, no signs of significant anxiety or depression. Hospital Course Patient was admitted with right arm and right facial numbness, but mostly he explained that he had the feeling that he was "drunk" but had not drank ETOH. He had moved here from [place] recently due to work. He has not established a PCP yet. He had not been taking any medications. He underwent carotid dopplers , CT scan of the head, MRI of the brain, and chest X-ray all showing no significant abnormalities. His symptoms of "drunk" sensation and right arm numbness had resolved. He reported less right facial numbness, but did remain somewhat. We identified that his LDL cholesterol was elevated and that his blood pressure was elevated. He was started on amlodipine, lisinopril, 81mg aspirin, and atorvastatin. He tolerated these medications without side effect. I ordered a Lyme titre, Vitamin B12, Folate level, and RPR. I then gave him the option of being discharged to home to follow up with (and establish) a PCP or to remain in the hospital to have evaluation by neurologist. He decided to go home. The blood tests I just mentioned were pending at the time of discharge some of which are send outs. Total Time Spent: Greater than 30 minutes This includes examination of the patient, discharge planning, medication reconciliation, and communication with other providers. Discharge Instructions Please refer to the electronic Patient Visit Report (Discharge Instructions) for additional information. Follow-Up PCP in 5-7 days. The patient was told by me that if his neurologic symptoms worsen or if new symptoms develop to call 911 or return to the ED for evaluation.
[2016-12-29 00:47] LABS: RAPID PLASMA REAGIN NONREACTIVE (NONREACT)
== END 2016-12-26 14:08 | disposition home or self-care (01) | DRG 69 ==
LOC: ENRESERVTM → ENRESERVDT → C.EDB 11:53 → C.2T 14:33
PROVIDERS: ADMIT Family Medicine; ATTEND Hospitalist
DX: G45.9 Transient cerebral ischemic attack, unspecified (principal); I10 Essential (primary) hypertension; E78.5 Hyperlipidemia, unspecified; I25.10 Atherosclerotic heart disease of native coronary artery without angina pectoris; Z95.5 Presence of coronary angioplasty implant and graft; F17.210 Nicotine dependence, cigarettes, uncomplicated; F12.10 Cannabis abuse, uncomplicated